=== PATIENT | male | born 1955 | race Caucasian/White ===

== ENCOUNTER 2023-04-26 16:27 | Emergency (ER) | payer BC, SELFPAY ==
--- NOTE | ~2023-04-26 | US_ITS ---
EXAMINATION: US VENOUS WITH DOPPLER UPPER EXTREMITY, LEFT CLINICAL INFORMATION: Left upper extremity swelling and pain. COMPARISON: None available. TECHNIQUE: Ultrasound of the upper extremity is performed using compression sonography and color and pulse Doppler flow with assessment of augmentation of flow. There is also imaging and Doppler assessment of the jugular and subclavian veins. Spectral analysis with color-flow imaging is performed. FINDINGS: Respiratory variation, normal compression, and augmented flow are noted throughout the upper extremity including the axillary, brachial, cubital, and and ulnar veins. Left jugular vein is not seen. There is normal flow in the internal jugular and subclavian veins. There is no visible deep or superficial thrombophlebitis. If the patient's symptoms progress, a followup ultrasound in 5 -7 days might be of value to exclude proximal propagation from a nonvisualized distal arm vein. Ultrasound scanning in the area of clinical concern just below the left elbow reveals mild subcutaneous soft tissue edema without discrete collection. US/US venous duplex UE LT IMPRESSION: No DVT demonstrated in the left upper extremity. Mild subcutaneous edema is noted in the area of clinical concern in the left forearm just below the elbow.
[2023-04-26 16:45] VITALS: BP 134/78; PULSE 70; RESP 18; TEMP 36.6; O2SAT 95; BMI 28.0
--- NOTE | 2023-04-26 16:45 | ED.EXTPRO ---
HPI - Extremity Problem General Chief complaint: General Medical Stated complaint: left forearm swollen Time Seen by Provider: 04/26/23 17:42 Source: patient Mode of arrival: ambulatory Limitations: no limitations History of Present Illness HPI Narrative: 67-year-old male with a history of coronary artery disease on Plavix presents to the ER with complaints of left forearm swelling, redness and discomfort Since Friday Patient denies fevers, chills, itching, joint pain or swelling, skin rash Denies recent tick bite Patient is unsure if there was any injury or trauma or if he was bit by anything Related Data Previous Rx's Medication Instructions Recorded doxycycline monohydrate 100 mg 100 mg PO BID #14 caps 04/26/23 capsule Allergies Allergy/AdvReac Type Severity Reaction Status Date / Time No Known Allergies Allergy Verified 04/26/23 16:44 Review of Systems Review of Systems: Yes all other systems are reviewed and are negative Constitutional: Constitutional: Reports no additional constitutional complaints, Denies body ache(s), Denies chills, Denies fever(s), Denies headache(s) and Denies weakness Eyes: Eyes: Reports no additional eye complaints and Denies change in vision ENT: Reports system reviewed and no additional complaints, except as documented, Denies dizziness, Denies headache(s), Denies nasal congestion, Denies nasal discharge and Denies neck pain Cardiovascular: Cardiovascular: Reports no additional cardiovascular complaints, Denies chest pain, Denies leg edema and Denies dyspnea Respiratory: Respiratory: Reports no additional respiratory complaints, Denies cough and Denies dyspnea Gastrointestinal: Gastrointestinal: Reports no additional gastrointestinal complaints, Denies abdominal pain, Denies diarrhea, Denies nausea and Denies vomiting Genitourinary: Genitourinary: Denies urinary incontinence Musculoskeletal: Musculoskeletal: Reports no additional musculoskeletal complaints, Denies back pain, Denies arthralgias, Denies joint swelling, Denies neck pain, Denies numbness and Denies tingling Integumentary/Breasts: Skin/Breast: Reports system reviewed and no additional complaints, except as docu, Reports swelling, Reports erythema and Denies rash Neurologic: Reports system reviewed and no additional complaints, except as documented, Denies Abnormal speech present, Denies dizziness, Denies headache(s), Denies numbness, Denies tingling and Denies weakness [facility] Past Medical History Attestation statement: The following information was validated with the patient. Source: old records reviewed and nursing notes reviewed Social History Social History Alcohol intake: never Smoked in Last 30 Days: No Use of substances other than those prescribed or required for medical reasons: No Advance Directives: No Advance Directives Information Provided: No Physical Exam Vital Signs: Vital Signs: Last Vital Signs Temp 97.9 F 04/26/23 16:45 Pulse 80 04/26/23 19:14 Resp 17 04/26/23 19:14 BP 128/80 04/26/23 19:14 Pulse Ox 97 04/26/23 19:14 O2 Del Method Room Air 04/26/23 19:14 BMI result Body Mass Index 28.0 Const: General: cooperative, healthy appearing, comfortable and no acute distress Orientation/consciousness: patient oriented x3 Limitations: no limitations HEENT: Head: Yes normal to inspection Ears: hearing grossly normal bilaterally General nose exam: Normal external nose present Face and sinus: Yes normal facial exam Mouth: Normal oral and palatal mucosa present Throat: Yes posterior oropharynx normal Eyes: General: appearance normal, both eyes and all related structures Pupils: Equal, round and reactive pupils present Neck: Neck: Yes normal visual inspection Chest: Chest palpation & inspection: normal inspection of the chest Resp: Effort & Inspection: normal respiratory effort Auscultation: clear to auscultation bilaterally Cardio: Rate: regular rate Rhythm: regular rhythm Peripheral pulses: Peripheral pulses 2+ throughout GI: Inspection: Yes normal to inspection Palpation (GI): Soft to palpation and nontender Auscultation: normal bowel sounds Back/Spine/Pelvis: Thoracic/Lumbar Spine: thoracic and lumbar spine normal to inspection Skin: General skin exam: no rashes or lesions noted Neuro: General: patient oriented x3, no focal motor deficits and normal sensation to monofilament Cranial nerves: Yes Equal, round and reactive pupils present Cognition (Neuro): normal cognition Speech: No Abnormal speech present Gait exam (Neuro): Normal gait present Motor exam (neuro): 5/5 motor strength present throughout Extrem: Other: Over the left forearm over the dorsal aspect there is a approximately 2 cm circular area of erythema and induration with surrounding swelling. The swelling is not circumferential. There is full range of motion of the distal and proximal joint with no difficulty. There are distal palpable radial and ulnar pulses. Sensation is intact distally. Pain is mild on exam. General: Yes normal to inspection Course Course Course Narrative: RME - 67 y/o male with history of CAD s/p CABG x3 who presents to the ER for evaluation of an enlarging, painful lump on the extensor surface of the left forearm after leaning on the arm a few days ago. Sent in from Urgent Care for rule out DVT. Plan: low suspicion for blood clot, U/S doppler ordered to rule it out Reevaluation(s) Reevaluation #1: Ultrasound negative for DVT. Patient will be sent home with course of antibiotics. Reviewed worrisome signs and symptoms when to return to the emergency room. Comfortable plan for discharge home. Medical Decision Making Medical Decision Making [facility] Narrative: 67-year-old male with a history of coronary artery disease on Plavix presents the ER with left forearm redness and swelling for several days. On exam the patient has a central area of erythema with surrounding swelling ? Insect bite but patient cannot recall The area is mild. There is no circumferential swelling or redness to suggest more advanced cellulitis. Patient had an ultrasound ordered from triage to rule out DVT. Will follow up Differential Diagnosis Differential Diagnoses: The differential diagnosis associated with the presentation includes Low concern for DVT May be insect bite or mild cellulitis Low concern for necrotizing fasc, compartment syndrome, lyme Lab Data MDM Lab Attestation statement: I reviewed the patient's lab results. Independent Interpretation I performed an independent interpretation of an: Ultrasound Radiology Impression Discussion of test interpretation with radiology: I have reviewed the radiologist's reading. Radiologist Impression: [place] [id number] Ultrasound Report Signed Patient: Evert Mclaughlin MR#: [id number] : 1955 Acct:[id number] Age/Sex: 67 / M ADM Date: 04/26/23 Loc: HO.ED Attending Dr: Ordering Physician: Sunita Scott Date of Service: 04/26/23 Procedure(s): US venous duplex UE Accession Number(s): [id number] cc: Sunita Scott~ EXAMINATION:? US VENOUS WITH DOPPLER UPPER EXTREMITY, LEFT CLINICAL INFORMATION:? Left upper extremity swelling and pain. COMPARISON:? None available. TECHNIQUE: Ultrasound of the upper extremity is performed using compression sonography and color and pulse Doppler flow with assessment of augmentation of flow. There is also imaging and Doppler assessment of the jugular and subclavian veins. Spectral analysis with color-flow imaging is performed. FINDINGS: Respiratory variation, normal compression, and augmented flow are noted throughout the upper extremity including the axillary, brachial, cubital, and and ulnar veins. Left jugular vein is not seen. There is normal flow in the internal jugular and subclavian veins. There is no visible deep or superficial thrombophlebitis. If the patient's symptoms progress, a followup ultrasound in 5 -7 days might be of value to exclude proximal propagation from a nonvisualized distal arm vein. Ultrasound scanning in the area of clinical concern just below the left elbow reveals mild subcutaneous soft tissue edema without discrete collection. US/US venous duplex UE LT IMPRESSION: No DVT demonstrated in the left upper extremity. Mild subcutaneous edema is noted in the area of clinical concern in the left forearm just below the elbow. Discharge Plan Discharge Clinical Impression: Cellulitis Patient Disposition: Home, Self-Care Instructions: Cellulitis (DC), Warm Compress or Soak (ED) Prescriptions: New doxycycline monohydrate 100 mg capsule 100 mg PO BID Qty: 14 0RF Referrals: Nikhil Aguirre MD [Primary Care Provider] - 1 week (as needed) Interventions: ED Discharge Assessment Last Done: 04/26/23 19:15 Discharge Date/Time: 04/26/23 19:16
[2023-04-26 19:14] VITALS: BP 128/80; PULSE 80; RESP 17; O2SAT 97
== END 2023-04-26 19:16 | disposition home or self-care (01) ==
LOC: HO.ED 18:35
PROVIDERS: Emergency Provider Emergency Medicine; PCP Internal Medicine
DX: L03.114 Cellulitis of left upper limb (principal); M79.602 Pain in left arm
CPT/HCPCS: 93971; 99283; 99284